=== PATIENT | female | born 1985 | race Caucasian/White ===

== ENCOUNTER 2018-11-21 04:43 | Emergency (ER) | payer OTHER ==
[2018-11-21] MEDS ORDERED: THIAMINE HCL 100 MG in NORMAL SALINE 50 ML IV ONE (08:41)
[2018-11-21] MEDS ORDERED: LORAZEPAM INJ 2 MG/1 ML VIAL IV ONE (08:41)
[2018-11-21] MEDS ORDERED: NORMAL SALINE 1000 ML 1,000 ML IV ONE (08:42)
--- NOTE | 2018-11-21 08:43 | ER Document Report ---
ED General <ELDRIDGEHUGO - Last Filed: 11/21/18 12:14> - General TRAVEL OUTSIDE OF THE [place] IN LAST 30 DAYS: No <NICKOLAS ROSAS - Last Filed: 11/21/18 21:00> - General Chief Complaint: Anxiety Stated Complaint: POSS PANIC ATTACK Time Seen by Provider: 11/21/18 08:31 Primary Care Provider: Joshua Huston [Outside] - 11/24/18 [facility] [Outside] - Follow up as needed - HPI Notes: 33-year-old female to the emergency department with complaints of possible anxiety attack, tremulous hands, auditory hallucinations that have been getting worse since Saturday of this week. States that she and her have been going through some marital problems. She went on a 9-day velasquez where she drank either to 12 packs of beer or entire handle of alcohol daily. She states that she stopped that this past Saturday and started to have symptoms on Saturday. States she has not been able to sleep since Saturday either. States that she often hears voices or will see things out of the corner of her eye that are not there. She denies suicidal ideations or homicidal ideations. She admits that she has suffered from anxiety in the past but nothing like this before. She states that normally she is not heavy drinker and typically only drinks socially. 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 denies: Chest pain, Palpitations, Syncope, Dizziness, Lightheaded Respiratory: denies: Cough, Short of breath Gastrointestinal: denies: Abdomen distended, Abdominal pain, Diarrhea, Nausea, Vomiting Genitourinary: No symptoms reported Skin: No symptoms reported Neurological/Psychological: Anxiety, Hallucinations, Tremor. denies: Homicidal ideation, Suicidal ideation -: Yes All other systems reviewed and negative <NICKOLAS ROSAS - Last Filed: 11/21/18 21:00> Physical Exam - Vital signs Interpretation: Normal, Hypertensive, Tachycardic - General General appearance: Anxious In distress: Moderate - very anxious - HEENT Head: Normocephalic, Atraumatic Eyes: Normal Pupils: PERRL - Respiratory Respiratory status: No respiratory distress Chest status: Nontender Breath sounds: Normal. No: Rales, Rhonchi, Stridor, Wheezing Chest palpation: Normal - Cardiovascular Rhythm: Tachycardia Heart sounds: Normal auscultation Murmur: No - Abdominal Inspection: Normal Distension: No distension Bowel sounds: Normal Tenderness: Nontender Organomegaly: No organomegaly - Neurological Neuro grossly intact: Yes Cognition: Inattentive - Patient has difficulty staying on one topic and she is often tangential Orientation: AAOx4 Giovanni Coma Scale Eye Opening: Spontaneous Chunky Coma Scale Verbal: Oriented Chunky Coma Scale Motor: Obeys Commands Chunky Coma Scale Total: 15 Speech: Other - pressured speech Cranial nerves: Normal Cerebellar coordination: Normal Motor strength normal: LUE, RUE, LLE, RLE Additional motor exam normals: Other - Noted bilateral tremulous hands. No: Pronator drift - Psychological Associated symptoms: Anxious, Labile, Tangential speech, Tearful. No: Decreased appetite, Flight of ideas, Judaism preoccupation, Restlessness, Unable to sleep, Uncooperative - Skin Skin Temperature: Warm Skin Moisture: Dry Skin Color: Normal <SHADI ROSASBEALEX Jaquez - Last Filed: 11/21/18 21:00> - Vital signs Vitals: Temp Pulse Resp BP Pulse Ox 97.9 F 107 H 20 142/97 H 100 11/21/18 04:48 11/21/18 04:48 11/21/18 04:48 11/21/18 04:48 11/21/18 04:48 Selected Entries 11/21/18 12:27 Temperature 97.4 F Pulse Rate [ 80 Left Finger] Respiratory 18 Rate Blood Pressure 130/67 H [Left Upper Arm ] O2 Sat by Pulse 97 Oximetry (NICKOLAS ROSAS) Course - Laboratory Result Diagrams: 11/21/18 09:55 11/21/18 09:55 <HUGO ELDRIDGE - Last Filed: 11/21/18 12:14> - Laboratory Result Diagrams: 11/21/18 09:55 11/21/18 09:55 <NICKOLAS ROSAS - Last Filed: 11/21/18 21:00> - Vital Signs Vital signs: Temp Pulse Resp BP Pulse Ox 97.4 F 80 18 130/67 H 97 11/21/18 12:27 11/21/18 12:27 11/21/18 12:27 11/21/18 12:27 11/21/18 12:27 - Laboratory Laboratory results interpreted by me: 11/21/18 11/21/18 11/21/18 09:55 09:55 10:00 RDW 14.3 H Chloride 109 H BUN 2 L Creatinine 0.45 L AST 77 H Urine Ketones TRACE H Urine Blood SMALL H Ur Leukocyte Esterase TRACE H - Transfer of Care Notes: 11/21/18 Once labs returned, had footwear factory workerShannon see patient. Patient does have follow up with [facility], but has had some difficulty with follow up appointment. She is not HI, SI. With further questioning of her reported hallucinations, she states that she just feels anxious and thinks she hears her family moving around her home. Shannon and I agree that patient does meet inpatient pysch criteria. After patient was seen by Crisis, she became acutely agitated. Told RN that she had not been given any medicine, despite ativan given as well as thiamine and fluids. Stated that she wanted to leave. I rounded on her, offered her further monitoring and treatment but she declined. She is pressured and labile in her emotions but continues to deny SI or HI. Did offer her Vistaril for her anxiety which she did accept. I also strongly encouraged her to see her pyschiatrist. I have encouraged her to return at any time if her symptoms worsened, if her anxiety became more uncontrolled, if she starts to have thoughts of SI, HI. She voiced understanding and agrees with the plan. Updated Crisis about the patient and she also agrees with the plan. (NICKOLAS ROSAS) Discharge <HUGO ELDRIDGE - Last Filed: 11/21/18 12:14> <NICKOLAS ROSAS - Last Filed: 11/21/18 21:00> - Discharge Clinical Impression: Anxiety, Acute stress reaction Condition: Stable Disposition: HOME, SELF-CARE Instructions: Anxiety ([facility]) Additional Instructions: You have been evaluated both medical and behavioral health teams and been deemed appropriate for discharge. You are highly encouraged to continue working with your outpatient mental health provider to develop positive coping skills and to discuss possibility of medication management. Please contact your outpatient mental health provider, [facility], on Saturday to make an appointment. AT ANY TIME, IF YOUR SYMPTOMS CHANGE SIGNIFICANTLY OR WORSEN OR YOU DEVELOP NEW SYMPTOMS, RETURN TO THE EMERGENCY DEPARTMENT IMMEDIATELY FOR RE-EVALUATION. Prescriptions: Hydroxyzine Pamoate [Vistaril 25 mg Capsule] 1 - 2 cap PO Q8H PRN #30 capsule PRN Reason: Referrals: [facility] [Outside] - 11/24/18 [facility] [Outside] - Follow up as needed
[2018-11-21 10:11] LABS: ABSOLUTE LYMPHOCYTES (AUTO) 1.2 10^3/uL (0.5-4.7); ABSOLUTE MONOCYTES (AUTO) 0.4 10^3/uL (0.1-1.4); ABSOLUTE NEUT (AUTO) 4.7 10^3/uL (1.7-8.2); BASOPHILS % (AUTO) 0.3 % (0-2); EOSINOPHILS % (AUTO) 0.6 % (0-6); HEMATOCRIT 41.7 % (36.0-47.0); HEMOGLOBIN 13.8 g/dL (12.0-15.5); LYMPHOCYTES % (AUTO) 19.3 % (13-45); MEAN CORPUSCULAR HEMOGLOBIN 27.9 pg (27.0-33.4); MEAN CORPUSCULAR HGB CONC 33.1 g/dL (32.0-36.0); MEAN CORPUSCULAR VOLUME 84 fl (80-97); MONOCYTES % (AUTO) 6.9 % (3-13); PLATELET COUNT 153 10^3/uL (150-450); RED BLOOD COUNT 4.95 10^6/uL (3.72-5.28); RED CELL DISTRIBUTION WIDTH 14.3 % (11.5-14.0); SEGMENTED NEUTROPHILS % (AUTO) 72.9 % (42-78); TOTAL CELLS COUNTED % (AUTO) 100 %; WHITE BLOOD COUNT 6.4 10^3/uL (4.0-10.5)
[2018-11-21 10:23] LABS: ALANINE AMINOTRANSFERASE 52 U/L (9-52); ALBUMIN 4.2 g/dL (3.5-5.0); ALKALINE PHOSPHATASE 67 U/L (38-126); ANION GAP 7 (5-19); ASPARTATE AMINO TRANSFERASE 77 U/L (14-36); BILIRUBIN,DIRECT 0.2 mg/dL (0.0-0.4); BILIRUBIN,TOTAL 0.8 mg/dL (0.2-1.3); BLOOD UREA NITROGEN 2 mg/dL (7-20); CARBON DIOXIDE 25 mmol/L (22-30); CHLORIDE 109 mmol/L (98-107); GLUCOSE 95 mg/dL (75-110); LIPASE 75.7 U/L (23-300); POTASSIUM 3.6 mmol/L (3.6-5.0); SODIUM 141.1 mmol/L (137-145); TOTAL PROTEIN 7.2 g/dL (6.3-8.2)
[2018-11-21 10:25] LABS: ALCOHOL < 10 mg/dL (NONE DETECTED)
[2018-11-21 10:43] LABS: APPEARANCE,URINE CLEAR; BILIRUBIN,URINE NEGATIVE (NEGATIVE); COLOR,URINE STRAW; GLUCOSE, URINE NEGATIVE (NEGATIVE); KETONES,URINE TRACE mg/dL (NEGATIVE); LEUKOCYTE ESTERASE,URINE TRACE (NEGATIVE); NITRITE,URINE NEGATIVE (NEGATIVE); PROTEIN,URINE NEGATIVE (NEGATIVE); URINE SPECIFIC GRAVITY 1.002; UROBILINOGEN,URINE NEGATIVE mg/dL (<2.0)
[2018-11-21 10:59] LABS: URINE AMPHETAMINES SCREEN NEGATIVE; URINE BARBITURATES SCREEN NEGATIVE; URINE BENZODIAZEPINES SCREEN NEGATIVE; URINE COCAINE SCREEN NEGATIVE; URINE MARIJUANA (THC) SCREEN NEGATIVE; URINE METHADONE SCREEN NEGATIVE; URINE PHENCYCLIDINE SCREEN NEGATIVE
[2018-11-21] MEDS ORDERED: NICOTINE 7 MG/24 HR PATCH.TD24 TD ONE (11:11)
--- NOTE | 2018-11-21 12:14 | PSYCHOLOGICAL NOTE ---
Psych Note - Psych Note Date seen by psych provider: 11/21/18 Time seen by psych provider: 11:40 Psych Note: Reason for Consult: Anxiety/ reports auditory hallucinations 33-year-old female presents to the emergency department with complaints of possible anxiety attack, tremulous hands, auditory hallucinations that have been getting worse since Saturday of this week. Patient discloses binge drinking for approximately 9 days. She confirms this is happened once previous however during her to binge drinking episodes she was sober for proximally 1 year. Patient denies any history of having difficulties with withdrawal. Patient denies any thoughts of wanting to harm herself or others and denies both auditory and visual hallucinations. When asked about her disclosure to attending physician she reports that she had looked up withdrawal symptoms and was concerned that she may be having "the worst case of withdrawal...you know delirium." Patient reports that this only occurred while at home when she was trying to sleep and thinking back on it may have been hearing her AC unit. Patient confirms marital discord which was the onset of her binge drinking. She was able to identify additional support network such as friends in the local area. Patient already is established at [facility] for therapy. She is currently not prescribed any medications however that has been discussed which she opted to decline at the time. Patient reports after reflecting over recent days she feels that it may be beneficial to get on medication. Patient does decline assistance from [facility] for medications [place] Clinician provided psychoeducation on using mental health providers that specialize in mental health care to obtain medications to treat mental health diagnoses. Patient is alert and orientated to person, place, time and circumstance. Mood is euthymic with congruent affect is smiling engaging with clinician. Patient denies suicidal and homicidal ideation. Patient originally reported auditory hallucinations however patient's description does not correlate with known manifestations. Patient is not demonstrating any behaviors of responding to internal stimuli i.e. organized and linear thought process, maintains good eye contact, normal conversational speech. Intellectual abilities appear to be within the average range. Attention and concentration are good. Insight, judgment, impulse control are fair. Unspecified anxiety disorder per history provided by patient Binge drinking episode provided by patient (patient's toxicology report indicates no alcohol in system) Clinician notes cluster B personality characteristics No medication recommendations at this time Impression\\plan: Patient is cleared from acute psychiatric services. Patient does not meet IVC criteria per [place] GS 122C. Inpatient psychiatric treatment would not be appropriate for this patient as she is not demonstrating any symptoms of responding to internal stimuli and denies any thoughts of wanting to harm herself or others. Patient confirms that she is having marital discord however is able to identify additional supports with friends in the local area. Patient's thoughts are organized and linear and is able to demonstrate problem solving skills i.e. calling an [employer] to get a ride home. Patient has an outpatient mental health provider with [facility] where she gets therapy and has been discussing the possibility of medication management. Patient was offered assistance in getting on medication however declined assistance. Patient is encouraged to continue working with her outpatient mental health provider on positive coping skills. Dr. Marrero was consulted to care management of this patient; attending physicians in agreement with recommendations and disposition.
[2018-11-21 12:28] VITALS: BP 130/67
--- NOTE | 2018-11-23 00:11 | EKG REPORT ---
SEVERITY:- OTHERWISE NORMAL ECG - SINUS RHYTHM BORDERLINE RIGHT AXIS DEVIATION : Confirmed by: Michelle Stewart 23-Nov-2018 00:10:19
== END 2018-11-21 12:28 | disposition home or self-care (01) ==
LOC: ER 04:43
DX: F41.9 Anxiety disorder, unspecified (principal); F43.0 Acute stress reaction
CPT/HCPCS: 93005; 99284; 96361; 96375; 96365; 36415; 80307 ×2; 83690; 85025; 81025; 80053; 81001; 93010; J2060; J3411; J7030